=== PATIENT | male | born 1990 | race Caucasian/White ===

== ENCOUNTER 2016-07-09 04:31 | Emergency (ER) | payer BC ==
[~2016-07-09 04:31] MED LIST: ADVAIR 2501 DISK W/D PO; ALBUTEROL17 GM INH; AMOXICILLIN500 M1 PO; CLARITIN10 MG PO; FLEXERIL PO; IBUPROFEN PO; MOTRIN600 MG PO; NO MEDICATIONS; TYLOX 5/500 CAP1 CAP PO; ULTRAM PO; ZITHROMAX PO; ZYRTEC10 M2 PO
== END 2016-07-09 04:59 | disposition home or self-care (01) ==
LOC: SED 04:31
DX: S39.012A Strain of muscle, fascia and tendon of lower back, initial encounter (principal); Z98.890 Other specified postprocedural states; F17.210 Nicotine dependence, cigarettes, uncomplicated; X58.XXXA Exposure to other specified factors, initial encounter; Y92.9 Unspecified place or not applicable
CPT/HCPCS: 99283

== ENCOUNTER 2016-10-01 07:09 | Emergency (ER) | payer SELFPAY | END 2016-10-01 08:13 | disposition home or self-care (01) | LOC: SED 07:09 | DX: J06.9 Acute upper respiratory infection, unspecified (principal); F17.200 Nicotine dependence, unspecified, uncomplicated | CPT/HCPCS: 99282 ==

== ENCOUNTER 2016-12-02 09:45 | Emergency (ER) | payer SELFPAY ==
[2016-12-02 11:12] LABS: BASOPHIL# 0.1 X10e3 (0-0.3); BASOPHIL% 0.9 % (0-2.5); EOSINOPHIL# 0.3 X10e3 (0-0.7); EOSINOPHIL% 4.7 % (0.0-7.0); HEMATOCRIT 48.9 % (38.0-50.0); LYMPHOCYTE# 1.3 X10e3 (1.0-3.5); LYMPHOCYTE% 19.8 % (17.0-45.0); MEAN CELL VOLUME 90.7 FL (83-96); MEAN CORPUSCULAR HEMOGLOBIN 31.6 PG (28-34); MEAN CORPUSCULAR HGB CONC 34.8 g/dL (30-36); MEAN PLATELET VOLUME 7.3 FL (6.5-11.5); MONOCYTE# 0.7 X10e3 (0-1.0); NEUTROPHIL# 4.1 X10e3 (1.5-7.1); NEUTROPHIL% 63.6 % (40-75); PLATELET COUNT 265 X10e3 (140-420); RED BLOOD COUNT 5.39 X10e (3.90-5.60); WHITE BLOOD COUNT 6.5 X10e3 (4.0-10.5)
[2016-12-02 11:24] LABS: ALBUMIN SERUM 4.9 g/dL (3.5-5.0); BILIRUBIN, DIRECT 0.1 mg/dL (0.0-0.2); BILIRUBIN,INDIRECT 0.5 mg/dL (0.0-0.9); BILIRUBIN,TOTAL 0.6 mg/dL (0.2-2.0); CALCIUM SERUM 9.2 mg/dL (8.4-10.2); GLOM FILT RATE Estimated 104.9 mL/min (>60); POTASSIUM 4.2 mmol/L (3.5-5.1); PROTEIN TOTAL SERUM 8.2 g/dL (6.0-8.3)
[2016-12-02 11:40] LABS: DIFF IND NO
== END 2016-12-02 12:24 | disposition home or self-care (01) ==
LOC: SED 09:45
PROVIDERS: Emergency Medicine
DX: A08.4 Viral intestinal infection, unspecified (principal); E86.0 Dehydration; F17.210 Nicotine dependence, cigarettes, uncomplicated
CPT/HCPCS: 36415; 80048; 80076; 82150; 83690; 85025; 96374; 96375; 99284; C9113; J2405